=== PATIENT | female | born 1985 | race Caucasian/White ===

== ENCOUNTER 2018-06-27 09:24 | Inpatient (IN) | payer MEDICAID ==
[2018-06-27] MEDS ORDERED: OXYTOCIN 30 UNITS/LR 500 ML IV ×4 (10:30→18:00)
[2018-06-27] MEDS ORDERED: METHYLERGONOVINE 0.2 MG INJ IM ×2 (10:30→18:00)
[2018-06-27] MEDS ORDERED: CARBOPROST 250 MCG INJ IM ×2 (10:30→18:00)
[2018-06-27] MEDS ORDERED: MISOPROSTOL 200 MCG TAB PR ×2 (10:30→18:00)
[2018-06-27] MEDS: LACTATED RINGER'S 1,000 ML IV ×2 (11:43→12:24)
[2018-06-27 11:54] LABS: ADD MAN DIFF? NO
[2018-06-27 11:59] LABS: WHITE BLOOD COUNT 7.5 10^3/ul (4.8-10.8)
[2018-06-27 11:59] LABS: BASOPHILS % 0.3 % (0.0-2.0); EOSINOPHILS # 0.1 10^3/ul (0.0-0.5); EOSINOPHILS % 1.2 % (0.0-7.0); HEMATOCRIT 36.7 % (37.0-47.0); HEMOGLOBIN 12.1 g/dl (12.0-16.0); LYMPHOCYTES # 1.7 10^3/ul (0.8-2.9); LYMPHOCYTES % 22.5 % (15.0-51.0); MEAN CORPUSCULAR HEMOGLOBIN 27.8 pg (29.0-33.0); MEAN CORPUSCULAR VOLUME 84.4 fl (82.0-101.0); MEAN PLATELET VOLUME 9.4 fl (7.4-10.4); MONOCYTE # 0.5 10^3/ul (0.3-0.9); MONOCYTES % 6.1 % (0.0-11.0); NEUTROPHIL # 5.2 10^3/ul (1.6-7.5); NEUTROPHILS % 69.2 % (39.0-77.0); PLATELET COUNT 218 10^3/UL (140-415); RED BLOOD COUNT 4.35 10^6/ul (4.20-5.40); RED CELL DISTRIBUTION WIDTH 14.8 % (11.5-14.5)
[2018-06-27 12:18] LABS: INR 0.91; PROTIME 12.3 Sec (11.9-14.9)
[2018-06-27 12:21] LABS: PARTIAL THROMBOPLASTIN TIME 28.3 Sec (25.0-35.0)
[2018-06-27] MEDS ORDERED: METOCLOPRAMIDE 10 MG INJ (12:25)
[2018-06-27] MEDS ORDERED: ONDANSETRON 4 MG INJ ×2 (12:25→17:15)
[2018-06-27] MEDS ORDERED: morphine SULFATE/PF (10 MG/10 ML) INJ (12:25)
[2018-06-27] MEDS ORDERED: BUPIVACAINE 0.75%/DEXT (SPINAL) 2 ML INJ (12:26)
[2018-06-27] MEDS ORDERED: KETOROLAC 30 MG INJ ×2 (12:26→17:15)
[2018-06-27] MEDS ORDERED: CEFAZOLIN 2 GM/50 ML (PMX) 50 ML IVPB (12:31)
[2018-06-27] MEDS ORDERED: CEFAZOLIN 1 GM INJ (13:08)
[2018-06-27] MEDS ORDERED: EPHEDrine SULFATE 50 MG/5 ML SYG (13:11)
[2018-06-27] MEDS: CEFAZOLIN 2 GM/50 ML (PMX) 50 ML IV (13:36)
[2018-06-27 15:02] LABS: RAPID PLASMA REAGIN NONREACTIVE (NR)
[2018-06-27] MEDS ORDERED: NALOXONE (0.4 MG/ML) INJ IV (17:00)
[2018-06-27] MEDS ORDERED: morphine (1 MG/ML) 10ML SYRINGE IV ×3 (17:00)
[2018-06-27] MEDS ORDERED: morphine 2 MG INJ IV ×3 (17:00)
[2018-06-27] MEDS ORDERED: DIPHENHYDRAMINE 50 MG INJ IV (17:00)
[2018-06-27] MEDS: OXYTOCIN 30 UNITS/LR 500 ML IV ×3 (17:13→21:06)
[2018-06-27] MEDS: ONDANSETRON 4 MG INJ IV (17:16)
[2018-06-27] MEDS: KETOROLAC 30 MG INJ IV (17:17)
[2018-06-27] MEDS ORDERED: CEFAZOLIN 1 GM/50 ML (PMX) 50 ML IVPB (18:00)
[2018-06-27] MEDS ORDERED: OXYCODONE/ACETAMINOPHEN (5/325) TAB PO ×2 (18:00)
[2018-06-27] MEDS: SENNA/DOCUSATE NA (8.6MG/50MG) TAB PO (21:02)
[2018-06-27] MEDS: LANOLIN 7 GM TUBE TOP (23:37)
[2018-06-27] MEDS: CEFAZOLIN 1 GM/50 ML (PMX) 50 ML IVPB (23:37)
[2018-06-28] MEDS: OXYTOCIN 30 UNITS/LR 500 ML IV ×2 (02:02→05:56)
[2018-06-28] MEDS: LACTATED RINGER'S 1,000 ML IV ×2 (07:30→09:44)
[2018-06-28] MEDS ORDERED: LACTATED RINGER'S 500 ML IV (07:30)
[2018-06-28] MEDS: SENNA/DOCUSATE NA (8.6MG/50MG) TAB PO ×2 (08:43→20:56)
[2018-06-28] MEDS: KETOROLAC 30 MG INJ IV (09:51)
[2018-06-28 11:39] LABS: ADD MAN DIFF? NO
[2018-06-28 11:43] LABS: BASOPHILS % 0.1 % (0.0-2.0); EOSINOPHILS # 0.1 10^3/ul (0.0-0.5); EOSINOPHILS % 0.8 % (0.0-7.0); HEMATOCRIT 32.1 % (37.0-47.0); HEMOGLOBIN 10.5 g/dl (12.0-16.0); LYMPHOCYTES # 1.6 10^3/ul (0.8-2.9); LYMPHOCYTES % 17.4 % (15.0-51.0); MEAN CORPUSCULAR HEMOGLOBIN 27.4 pg (29.0-33.0); MEAN CORPUSCULAR HGB CONC 32.7 g/dl (32.0-37.0); MEAN CORPUSCULAR VOLUME 83.8 fl (82.0-101.0); MEAN PLATELET VOLUME 9.2 fl (7.4-10.4); MONOCYTE # 0.7 10^3/ul (0.3-0.9); MONOCYTES % 7.7 % (0.0-11.0); NEUTROPHIL # 6.6 10^3/ul (1.6-7.5); NEUTROPHILS % 73.4 % (39.0-77.0); PLATELET COUNT 192 10^3/UL (140-415); RED BLOOD COUNT 3.83 10^6/ul (4.20-5.40); RED CELL DISTRIBUTION WIDTH 14.8 % (11.5-14.5)
[2018-06-28] MEDS: IBUPROFEN 600 MG TAB PO ×2 (14:50→17:36)
[2018-06-28] MEDS: HYDROCODONE/APAP (5/325) TAB PO (14:51)
[2018-06-28] MEDS: MEASLES,MUMPS,RUBELLA VACCINE INJ SC* (17:38)
[2018-06-29] MEDS: IBUPROFEN 600 MG TAB PO ×5 (00:32→23:36)
[2018-06-29] MEDS: SENNA/DOCUSATE NA (8.6MG/50MG) TAB PO ×2 (09:03→21:45)
[2018-06-29] MEDS: NA PHOSPHATE/BIPHOS 133 ML ENEMA PR (12:09)
[2018-06-29] MEDS: HYDROCODONE/APAP (5/325) TAB PO (21:45)
[2018-06-30] MEDS: IBUPROFEN 600 MG TAB PO ×2 (05:48→12:36)
[2018-06-30] MEDS: SENNA/DOCUSATE NA (8.6MG/50MG) TAB PO (09:00)
[2018-06-30] MEDS: DIPHTH/TET/ACEL PERTUSS (ADULT) 0.5 ML VIAL IM* (10:41)
== END 2018-06-30 14:00 | disposition home or self-care (01) | DRG 765 ==
LOC: L-D 09:24 → PP1 19:13
PROVIDERS: Obstetrics & Gynecology
PROC: 10D00Z1 Extraction of Products of Conception, Low, Open Approach (ICD-10-PCS; principal; 2018-06-27 12:30)
PROC: 0UB70ZZ Excision of Bilateral Fallopian Tubes, Open Approach (ICD-10-PCS; 2018-06-27 12:30)
DX: O34.211 Maternal care for low transverse scar from previous cesarean delivery (principal); O99.214 Obesity complicating childbirth; Z68.41 Body mass index [BMI] 40.0-44.9, adult; E66.01 Morbid (severe) obesity due to excess calories; Z3A.39 39 weeks gestation of pregnancy; Z37.0 Single live birth; Z30.2 Encounter for sterilization
CPT/HCPCS: 85025; 85610; 85730; 86592; 86850; 86900; 86901; 88302; 90715; 99464